=== PATIENT | female | born 1955 | race Caucasian/White ===

== ENCOUNTER 2019-02-28 09:18 | Inpatient (IN) ==
--- NOTE | 2019-02-28 10:49 | History & Physical Bridge Note ---
Date of Service February 28, 2019 History & Physical Bridge Note I have examined the patient, reviewed the History & Physical and in the interval since the performance of the History & Physical I have noted the following changes of clinical significance: no changes noted
--- NOTE | 2019-02-28 10:50 | Pre Anesthesia Assessment ---
Date of Service February 28, 2019 Pre Sedation Assessment Vital Signs Temp Pulse Resp BP Pulse Ox 02/28/19 09:36 36.6 C 92 H 22 117/64 92 Cardiovascular RRR, no murmur, no edema + peripheral pulses normal Respiratory normal respiratory effort, lungs clear to auscultation Pre-Sedation Airway Assessment Smoking Status: Former smoker Hx Sleep Apnea: No Hx Difficult Intubation: No Short, Thick Neck: Yes Thyromental Distance: > or= 3.5 Finger Breadths Oral Cavity: + WNL Mallampati Class: III ASA: ASA3 Procedure Planning Contraindications for Sedation: none Current Medications Reviewed: Yes Notes The planned sedation has been discussed with the patient. Informed Consent was obtained. I have identified the patient, determined the appropriateness of sedation and have assessed the patient immediately prior to the procedure. All medicine(s) and interventions are by my order.
[2019-02-28] MEDS ORDERED: ALBUT/IPRATROP 3MG/0.5MG NEB 3 ML VIAL NEB STA (10:51)
[2019-02-28] MEDS ORDERED: SODIUM CHLORIDE 0.9% 1000ML 1,000 ML IV SCH (11:00)
[2019-02-28] MEDS ORDERED: LIDOCAINE 4% INH SOLN 4 ML BTL ONE ×2 (11:14)
[2019-02-28] MEDS ORDERED: OXYMETAZOLINE 0.05% 30 ML BTL ONE (11:14)
[2019-02-28] MEDS ORDERED: LIDOCAINE HCL VISCOUS SOLN 2% 15 ML UDC MT ONE (11:36)
[2019-02-28] MEDS ORDERED: MIDAZOLAM HCL 1 MG/ML 2ML VIAL IV STA (11:36)
[2019-02-28] MEDS ORDERED: LIDOCAINE HCL 2% (LOCAL) INJ 50 ML VIAL INFIL STA (11:36)
--- NOTE | 2019-02-28 12:07 | Post Operative Brief Note ---
Immediate Post Op Note v1 Date of Surgery February 28, 2019 Pre & Post Diagnosis Operation Date: 02/28/19 10:00 Pre-Op Diagnosis: Left Lung Atelectasis Post-Op Diagnosis: Left Lung Atelectasis/mucoid impaction Procedure Operation Date: 02/28/19 10:00 Actual Procedures p Bronchoscopy Radiology(Bilateral) - James Link MD Surgeon James Link MD Inspector And Tester none Estimated Blood Loss 0 Findings Consistent with Post-Op Diagnosis LLL collapse sec mucoid impaction Complications none Disposition Accompanied Patient To Recovery: No Overlapping Procedure I was present for: the critical portions of procedure. I was immediately available: during the entire case. Back up surgeon: was not required during procedure.
--- NOTE | 2019-02-28 12:08 | Post Anesthesia Assessment ---
Date of Service February 28, 2019 Post Sedation Assessment Vital Signs Temp Pulse Pulse Resp BP Pulse Ox 02/28/19 12:01 88 22 97/51 L 94 02/28/19 11:54 36.9 C 85 20 113/67 93 02/28/19 11:40 95 H 24 115/77 93 02/28/19 11:35 96 H 22 127/63 93 02/28/19 11:30 96 H 22 112/64 96 02/28/19 11:25 100 H 26 H 138/81 94 02/28/19 11:20 96 H 18 107/71 94 02/28/19 11:15 95 H 22 115/58 L 96 02/28/19 11:10 92 H 18 120/65 97 02/28/19 09:36 36.6 C 92 H 22 117/64 92 Recovery Score Activity: Moves 4 extremities Respiration: Deep Breath/Cough Circulation: +/-20% PreAnes Value Consciousness: Fully Awake Oxygen Saturation: O2 needed for >90% Post Anesthesia Score: 9 Discharge Sedation Level of Care: Higher Level of Care Post Sedation Plan On clinical assessment, the patient appears to have tolerated the sedation without complications. Patient is recovering as anticipated. Patient will continue to be monitored by nursing and may be discharged when sedation discharge criteria are met per below protocol. Upon Completions of procedure and additional 15 minutes continue every 5 minute vital signs and the P.A.R. score; then discharge to a Phase I or Fast Track to Phase II per the following guidelines: * Discharge Patient to appropriate Phase II area if PAR is 8 or greater or return to pre- procedure baseline. The post - procedure orders will be as directed. * If PAR score is less than 8 or not return to pre-procedure baseline then patient will follow Phase I monitoring till PAR is reached for Phase II. The Phase I may be done in procedure room or may call to secure a Phase I area. * If naloxone or flumazenil are used for reversal, hold in Phase I for continued monitoring from when last reversal dose was given for a minimum of 60 minutes or longer pending the nurse and/or physician discretion of patient condition before discharge to Phase II. Please call the Sedation Physician to re-evaluate and complete post-note for discharge to Phase II area. Do NOT discharge from procedure sedation or Phase 1 until post- sedation evaluation note is complete by procedure /sedation MD Sedation Discharge Instructions to be given to the patient at discharge to home.
[2019-02-28] MEDS ORDERED: ALBUT/IPRATROP 3MG/0.5MG NEB 3 ML VIAL INH PRN (12:48)
[2019-02-28] MEDS ORDERED: CARBOHYDRATES FOR HYPOGLYCEMIA PO PRN (12:51)
[2019-02-28] MEDS ORDERED: GLUCOSE 40% GEL 15 GM TUBE PO PRN (12:51)
[2019-02-28] MEDS ORDERED: GLUCAGON FOR INJ 1 MG VIAL SQ PRN (12:51)
[2019-02-28] MEDS ORDERED: GLUCOSE 10 TABS/TUBE PO PRN (12:51)
[2019-02-28] MEDS ORDERED: ACETAMINOPHEN 325 MG TAB PO PRN (12:51)
[2019-02-28] MEDS ORDERED: ONDANSETRON INJ 2 MG/ML 2 ML VIAL IV PRN (12:51)
[2019-02-28] MEDS ORDERED: DEXTROSE 50% 50 ML SYRINGE IV PRN (12:51)
[2019-02-28] MEDS ORDERED: ALUMINUM/MAGNESIUM SUSP 30 ML UDC PO PRN (12:51)
--- NOTE | 2019-02-28 12:52 | Operative Report ---
DATE OF OPERATION: 02/28/2019 PROCEDURE: Fiberoptic bronchoscopy with and without transbronchial biopsy. ANESTHESIA PREOPERATIVELY: None. ANESTHESIA DURING PROCEDURE: 2 mg IV Versed, 20 mL 2% Xylocaine spray above and below the cords, 4% viscous Xylocaine intranasally. DESCRIPTION OF PROCEDURE: Fiberoptic bronchoscope was inserted into the right naris with minimal difficulty and passed to the level of the true vocal cords. Cords appear to approximate normally with phonation without evidence of lesions or paralysis and the area was anesthetized with 2% Xylocaine spray. The scope was introduced into the trachea and right and left tracheobronchial tree. The brad was sharp. The right main stem bronchus with the right upper lobe, the apical posterior and anterior segments, bronchus intermedius, right middle lobe, medial lateral segments and all basilar segments, right lower lobe were free of endobronchial lesions with a small amount of mucopurulent secretion lavaged from right lower lobe until clear. Left tracheobronchial tree was then explored and the left lower lobe bronchial orifice was totally occluded with thick mucoviscous and mucopurulent secretion that was impacted. I copiously lavaged this area with normosol and the aspirate was sent for appropriate studies. The left upper lobe and lingual subdivision were not obstructed and a small amount of mucopurulent secretion was lavaged from each lobar segment as well. Left lower lobe was reintroduced with the scope and I could visualize the basilar segments without obvious endobronchial lesions, but each segmental bronchial orifice as well as a left lower lobe bronchial orifice itself was extremely edematous and friable. No additional specimens were obtained as the patient became quite tachypneic and tachycardic as well as hypoxemic. The procedure was terminated. She was given an additional nebulizer treatment with Xopenex 1.25 mg and 40 mg of IV Solu-Medrol and transferred back to A[facility], hemodynamically stable, in mild respiratory distress. A decision was made to admit her to the hospital because of persistent left lower lobe collapse/atelectasis secondary to mucoid impaction and treat for vigorous pulmonary toilet that would include aerosolized bronchodilator, IV Solu-Medrol with careful attention to glucose monitoring, broad-spectrum antibiotics, pending culture results and the use of a flutter valve. It may be necessary to use of Mucomyst or acetylcysteine with her treatments as well to eventuate pulmonary toilet. We may consider repeat bronchoscopy tomorrow if the patient continues to show left lower lobe atelectasis. I attest to the content of the Intraoperative Record and any orders documented therein. Any exception s are noted below.
--- NOTE | 2019-02-28 12:55 | Consultation Report ---
DATE OF CONSULTATION: 02/28/2019 ADDENDUM PHYSICAL EXAMINATION: GENERAL: Well-developed, well-nourished, moderately obese white female, appearing mildly dyspneic at rest. CURRENT VITAL SIGNS: Pulse 96 and irregular, respiratory rate 26, blood pressure 140/90, O2 sat 92% on 2 liters. She is afebrile. SKIN: Without lesion. HEENT: Atraumatic, normocephalic. PERRLA. LUNGS: Coarse rhonchi in the left base with improved aeration. CARDIAC: Irregular rate and rhythm. I do not appreciate a gallop. ABDOMEN: Soft, protuberant. EXTREMITIES: Trace pedal edema. No clubbing. Peripheral cyanosis. NEUROLOGIC: Intact. No lateralizing signs. OVERALL ASSESSMENT: A 63-year-old with severe chronic obstructive pulmonary disease, longstanding smoking history with left lower lobe atelectasis secondary to mucoid impaction. Cannot 100% rule out an endobronchial neoplasm, but we will admit for vigorous pulmonary toilet that should include aerosolized bronchodilator, IV Solu-Medrol, broad spectrum antibiotics, O2 therapy, and pulmonary toilet that would include a flutter valve, possibility a vibration vest, and we will add acetylcysteine and Mucomyst 20% 3 mL to her nebulizer treatments b.i.d. to see if this also helps with mucociliary clearance.
--- NOTE | 2019-02-28 13:00 | History & Physical Report ---
Date of Service February 28, 2019 02/28/19 Bronchoscopy Radiology, Surgeon: James Link Side: Bilateral Assessment & Plan (1) Acute and chronic respiratory failure: this pt was brought in for a elective bronchoscopy, was found to have LLL collapse with mucoid impaction with removal but developed acute respiratory failure from copd exacerbation post procedure. will be on telemetry for close oxymetry, steroids iv and duonebs, arformoterol and 3 doses of pulmozyme. No antibiotics at this point. pulmonary consult, will check cxr in am (2) Diabetes 1.5, managed as type 2: Patient be maintained on Lantus with sliding scale insulin and should be a diabetic diet n.p.o. after midnight for possible repeat bronchoscopy in the morning (3) Hypertension: Patient has her hypertension treated with carvedilol and Lasix these are continued (4) Hypothyroidism: She remains clinically euthyroid Synthroid 125 will be continued TSH rechecked in the morning (5) CHF (congestive heart failure): Patient has congestive heart failure listed on her problem list. She does have some lower extremity swelling and presentation this could be from cor pulmonale. Additionally she is on medications that would suggest heart failure such as carvedilol. She also has amiodarone which could be from atrial fibrillation which could create diastolic failure. We will need to obtain records from [facility] (6) DVT prophylaxis: Patient typically takes Xarelto. This is held for procedure. We will continue to hold this in case she is a repeat bronchoscopy in the morning and apply teds and SCDs at this time History of Present Illness Primary Care Provider: Dima Perez Capp, 63-year-old female brought for an elective bronchoscopy with Dr. Link for abnormal chest x-ray and increased shortness of breath. Reportedly she has fairly significant lung disease with an FEV1 of 700. He did find her to have left lower lobe collapse with mucoid impaction which was removed but subsequent to the procedure she developed a acceleration of her shortness of breath and having acute on chronic respiratory failure from COPD. The patient has chronic tobacco use as her history as well as some cardiovascular problems taking amiodarone and Xarelto although she does not recite to me that she is a history of atrial fibrillation when I asked with her and her daughter. In the ambulatory surgical unit she is laying on her right side she was talking in short sentences she has some pursed lip breathing he is on supplemental oxygen upon exam was abnormal she is agreeable to present to the hospital for further care by Dr. Link we did confirm she is a CPR code only in front of her daughter. She will be brought in for intravenous steroids inhaled bronchodilators give a short trial of Pulmozyme to see if I can move any of her mucus secretions as well as some Mucinex Allergies Allergy/AdvReac Type Severity Reaction Status Date / Time varenicline [From Chantix] Allergy Rash Verified 02/28/19 09:50 Home Medications Home Medications Medication Instructions Recorded Confirmed Type Calcium 500 + D 1 tab PO DAILY 02/28/19 02/28/19 History Daliresp 500 mcg PO DAILY 02/28/19 02/28/19 History Spiriva with HandiHaler 18 mcg INHALATION DAILY 02/28/19 02/28/19 History Tylenol Extra Strength 2 tab PO Q4 PRN 02/28/19 02/28/19 History Vancocin 250 mg PO DAILY 02/28/19 02/28/19 History Wellbutrin SR 150 mg PO BID 02/28/19 02/28/19 History Xarelto 20 mg PO DAILY 02/28/19 02/28/19 History albuterol sulfate [ProAir HFA] 1 puff INHALATION Q4 PRN 02/28/19 02/28/19 History amiodarone 200 mg PO DAILY 02/28/19 02/28/19 History carvedilol 1 tab PO DAILY 02/28/19 02/28/19 History clobetasol 1 applic TOPICAL DAILY 02/28/19 02/28/19 History clopidogrel 75 mg PO DAILY 02/28/19 02/28/19 History diclofenac sodium 1 tab PO DAILY 02/28/19 02/28/19 History fluticasone propionate [Flonase 1 spray INTRANASAL DAILY 02/28/19 02/28/19 History Allergy Relief] ljljmvxfmiu-tlflrxcjf-nkftmnxc 1 inh INHALATION DAILY 02/28/19 02/28/19 History [Trelegy Ellipta] furosemide [Lasix] 40 mg PO DAILY 02/28/19 02/28/19 History gabapentin 1 cap PO TID 02/28/19 02/28/19 History guaifenesin [Mucinex] 180 mg PO DAILY 02/28/19 02/28/19 History hydrocortisone [Anusol-HC] 1 applic [place] BID PRN 02/28/19 02/28/19 History insulin aspart U-100 [Novolog 15 unit SUBCUT DAILY 02/28/19 02/28/19 History Flexpen U-100 Insulin] insulin glargine [Lantus U-100 10 unit SUBCUT HS 02/28/19 02/28/19 History Insulin] ipratropium-albuterol 3 ml INHALATION Q6 PRN 02/28/19 02/28/19 History levothyroxine 1 tab PO DAILY 02/28/19 02/28/19 History magnesium 250 mg PO DAILY 02/28/19 02/28/19 History multivitamin 1 tab PO DAILY 02/28/19 02/28/19 History pantoprazole 40 mg PO DAILY 02/28/19 02/28/19 History potassium chloride 10 meq PO DAILY 02/28/19 02/28/19 History simvastatin 20 mg PO DAILY 02/28/19 02/28/19 History triamcinolone acetonide 1 applic TOPICAL DAILY PRN 02/28/19 02/28/19 History Past Med/Surg History Medical History CHF (congestive heart failure) (Acute) COPD (chronic obstructive pulmonary disease) (Acute) Chronic sinusitis (Acute) Coronary stent patent (Acute) Diabetes 1.5, managed as type 2 (Acute) Dyspnea (Acute) Eczema (Acute) H/O: hysterectomy (Acute) Hypertension (Acute) Hypothyroidism (Acute) Psoriasis (Acute) Surgical History H/O angioplasty (Acute) History of cholecystectomy (Acute) Family History Mother Diabetes Social History Beliefs That Will Affect Care: None Current Living Situation: Alone Other Information That Helps Us Care for You: No Feels Safe at Home: Yes Safety Concerns: Feels Safe At This Time Smoking Status: Former smoker Tobacco Type: cigarettes Smoking End Date: 2 weeks ago Hx Alcohol Use: No Hx Substance Use: No Review of Systems Review of Systems: ROS: well nourished well developed. No double vision blurry vision No problems with speech or swallowing No palpitations, chest pain or pressure lower extremity swelling Severe dyspnea shortness of breath pursed lip breathing No abdominal pain nausea vomiting diarrhea changes in appetite or weight No burning urine urine frequency or changes in color No focal joint pain or muscle pain No skin rashes or oral lesions No unusual bruising or bleeding No focused back pain or numbness or loss of strength No changes in memory or confusion Physical Exam Physical Exam: The patient appeared older than her stated age in mild to moderate distress Vital signs as documented. Head exam is unremarkable. normocephalic, atraumatic Neck is with mild jugular venous distension, thyromegaly, or lymphademopathy Lungs are coarse bilaterally right greater than left wheezes on the right. Cardiac exam reveals Rhythm is regular. First and second heart sounds normal. Abdominal exam reveals normal bowel sounds, slightly distended and tympanitic nontender no masses, no organomegaly Extremities are mildly edematous and both pedal pulses are present Neurologic exam is A&Ox3, no focal deficits, strength is equal bilateral Psychologically seems neither anxious or depressed Skin is warm Dry without bruises or lesions Results & Data Vital Signs (Past 12 Hours) Vital Signs Temp Pulse Pulse Resp BP Pulse Ox 02/28/19 12:44 90 20 122/63 91 02/28/19 12:13 37.3 C 88 22 93/68 L 94 02/28/19 12:01 88 22 97/51 L 94 02/28/19 11:54 36.9 C 85 20 113/67 93 02/28/19 11:40 95 H 24 115/77 93 02/28/19 11:35 96 H 22 127/63 93 02/28/19 11:30 96 H 22 112/64 96 02/28/19 11:25 100 H 26 H 138/81 94 02/28/19 11:20 96 H 18 107/71 94 02/28/19 11:15 95 H 22 115/58 L 96 02/28/19 11:10 92 H 18 120/65 97 02/28/19 09:36 36.6 C 92 H 22 117/64 92
--- NOTE | 2019-02-28 13:21 | Consultation Report ---
DATE OF CONSULTATION: 02/28/2019 REASON FOR CONSULTATION: Left lower lobe collapse/COPD exacerbation. HISTORY OF PRESENT ILLNESS: A 63-year-old white female initially seen by our midlevel, JOVITA Pires with [facility] on 01/22/2019. This was a new patient visit. The patient has been under the care of Dr. Quinn in the [facility] for primary care and Dr. Goddard with the [facility] for several years and diagnosed with severe COPD. The patient has had a longstanding smoking history and had transferred her care to our office in [place] at [facility] for convenience. She has been chronically congested and made worse with changes in weather. She had been on Advair and Spiriva and Daliresp. She was using a nebulizer frequently. Last chest x-ray apparently was 9 months ago and she had been hospitalized at that time with a COPD exacerbation. She is bringing up at times thick mucus although has had great difficulty doing so without hemoptysis or pleuritic pain. She has been wheezing and particularly symptomatic over the past several weeks to months. Her father smoked during her childhood and she has smoked one-half to a pack of cigarettes a day for 45 years and is planning on quitting smoking. She had a history of atrial fibrillation and ischemic cardiac disease having undergone stenting x2 and has had a pacemaker and defibrillator placed. She follows with Dr. Bowen/cardiology in [place] and has been on amiodarone for chronic atrial fibrillation there. CT scan of the chest done within the past month showed left lower lobe collapse with no discernible mass or adenopathy and she underwent bronchoscopic evaluation utilizing moderate conscious sedation earlier today. We had to do the procedure with her sitting at 60 degrees in the [facility] and she was too dyspneic to undergo the procedure reclining. We used light anesthesia and what was clear was the left lower lobe was totally occluded with thick mucoviscous and mucoid impaction and we were able to lavage this area copiously and send the aspirate for studies. I did not see an obvious neoplastic process, but the left lower lobe bronchus and its segmental bronchi were edematous and friable. The patient did not tolerate the procedure well and the procedure was terminated. No biopsies or additional specimens were obtained. The patient was given 40 mg of IV Solu-Medrol and an additional nebulizer treatment with Xopenex 1.25 mg (patient had been given a preprocedure nebulizer treatment with DuoNeb solution) and a decision was made to admit the patient for a more aggressive pulmonary toilet and possible repeat bronchoscopy in the morning if chest x-ray continues to show left lower lobe atelectasis. She denies any aspiration or postprandial cough. Has a history of hypothyroidism, GERD and coronary disease as well as chronic atrial fibrillation. She stopped her Xarelto, which she has been on for her atrial fibrillation on Monday and is no longer on Plavix. FAMILY HISTORY: Includes asthma, COPD. The rest of review of systems is noncontributory. PAST MEDICAL HISTORY: Pertinent for hypertension, hypothyroidism, psoriasis, type 2 diabetes mellitus, chronic atrial fibrillation, ischemic cardiac disease as well as pacemaker ICD implantation. The patient was seen back in the clinic by Joao Farley on 02/18/2019. I told that her CT scan showed complete collapse of left lower lobe and was scheduled for surgery. Her Advair and Spiriva have been stopped and she was placed on Trelegy Ellipta 100/62.5/25 mcg 1 inhalation daily. I spoke with Dr. Peterson who agreed to admit the patient onto the hospitalists. She is not in any hospitalist service for aggressive pulmonary toilet. We will make patient n.p.o. this evening and consider repeat bronchoscopy in the morning if the chest x-ray shows no improvement.
[2019-02-28] MEDS: GABAPENTIN 300 MG CAP PO SCH ×2 (15:47→21:25)
[2019-02-28] MEDS: DORNASE ALFA 2.5 ML AMP INH SCH ×2 (16:09→18:56)
[2019-02-28] MEDS ORDERED: INSULIN ASPART 100 UNITS/ML 3 ML PEN SC SCH (16:30)
[2019-02-28] MEDS ORDERED: INSULIN ASPART 100 UNITS/ML 3 ML PEN SC ONE (16:45)
[2019-02-28] MEDS ORDERED: INSULIN GLARGINE SOLOSTAR 100 UNITS/ML 3 ML PEN SC STA (18:50)
[2019-02-28] MEDS: ARFORMOTEROL TART 15MCG/2ML VIAL INH SCH (18:55)
[2019-02-28] MEDS ORDERED: SODIUM CHLOR 7% 4 ML NEB INH SCH (20:00)
[2019-02-28] MEDS ORDERED: ALBUT/IPRATROP 3MG/0.5MG NEB 3 ML VIAL NEB SCH (20:00)
[2019-02-28] MEDS ORDERED: PHARMACY GLYCEMIC MGMT CONSULT PRN (20:39)
[2019-02-28] MEDS ORDERED: ACETYLCYSTEINE 20% INHAL SOLN ***DISPENSED BY RESP. INH SCH (21:00)
[2019-02-28] MEDS ORDERED: INSULIN GLARGINE SOLOSTAR 100 UNITS/ML 3 ML PEN SQ SCH ×2 (21:00)
[2019-02-28] MEDS ORDERED: INSULIN GLARGINE SOLOSTAR 100 UNITS/ML 3 ML PEN SC SCH (21:00)
[2019-02-28] MEDS: INSULIN ASPART 100 UNITS/ML 3 ML PEN SC SCH ×2 (21:21→23:57)
[2019-02-28] MEDS: methylPREDNISolone 40 MG in SYRINGE 0 ML IV SCH (21:25)
[2019-02-28] MEDS: guaiFENesin 600 MG TABCR PO SCH (21:26)
[2019-02-28] MEDS: BuPROPion SR 150 MG TABCR PO SCH (21:27)
[2019-02-28] MEDS: DOXYCYCLINE HYCLATE 100 MG in DEXTROSE 5% 100 ML IV SCH (21:31)
[2019-02-28] MEDS: ALBUT/IPRATROP 3MG/0.5MG NEB 3 ML VIAL NEB PRN (23:49)
[2019-03-01] MEDS: INSULIN ASPART 100 UNITS/ML 3 ML PEN SC SCH ×7 (04:17→23:59)
[2019-03-01] MEDS: LEVOTHYROXINE SODIUM 125 MCG TABLET PO SCH (04:19)
[2019-03-01 06:37] LABS: Estimated Average Glucose 186 mg/dl; Hemoglobin A1C 8.1 % (4.5-5.6)
[2019-03-01 06:53] LABS: BUN Creatinine Ratio 14.6 (10-20); Calcium 9.1 mg/dl (8.5-10.1); Creatinine Clr Calc Pharmacy 62.7 ml/min; Est GFR (African American) 64.7; Est GFR (Non-African American) 55.8; Potassium 4.4 mmol/L (3.5-5.1)
[2019-03-01] MEDS: ARFORMOTEROL TART 15MCG/2ML VIAL INH SCH ×2 (07:17→19:45)
[2019-03-01] MEDS: ALBUT/IPRATROP 3MG/0.5MG NEB 3 ML VIAL NEB PRN ×3 (07:39→19:46)
--- NOTE | 2019-03-01 07:59 | History & Physical Bridge Note ---
Date of Service March 01, 2019 History & Physical Bridge Note I have examined the patient, reviewed the History & Physical and in the interval since the performance of the History & Physical I have noted the following changes of clinical significance: no changes noted
--- NOTE | 2019-03-01 08:00 | Pre Anesthesia Assessment ---
Date of Service March 01, 2019 Pre Sedation Assessment Vital Signs Temp Pulse Pulse Resp BP BP Pulse Ox 03/01/19 07:44 36.7 C 79 22 120/63 97 03/01/19 07:39 87 20 97 03/01/19 06:59 85 20 97 03/01/19 04:00 36.5 C 86 22 129/80 93 03/01/19 01:54 85 02/28/19 23:49 81 22 95 02/28/19 23:04 36.5 C 84 20 129/70 92 02/28/19 18:57 82 18 95 02/28/19 15:05 37.1 C 94 H 18 145/74 H 93 02/28/19 13:30 36.9 C 89 22 145/74 H 90 02/28/19 13:15 37.2 C 89 22 123/64 94 02/28/19 12:44 90 20 122/63 91 02/28/19 12:13 37.3 C 88 22 93/68 L 94 02/28/19 12:01 88 22 97/51 L 94 02/28/19 11:54 36.9 C 85 20 113/67 93 02/28/19 11:40 95 H 24 115/77 93 02/28/19 11:35 96 H 22 127/63 93 02/28/19 11:30 96 H 22 112/64 96 02/28/19 11:25 100 H 26 H 138/81 94 02/28/19 11:20 96 H 18 107/71 94 02/28/19 11:15 95 H 22 115/58 L 96 02/28/19 11:10 92 H 18 120/65 97 02/28/19 09:36 36.6 C 92 H 22 117/64 92 Cardiovascular RRR, no murmur, no edema + peripheral pulses normal Respiratory + audible wheezes Pre-Sedation Airway Assessment Smoking Status: Former smoker Hx Sleep Apnea: No Hx Difficult Intubation: No Short, Thick Neck: Yes Thyromental Distance: > or= 3.5 Finger Breadths Oral Cavity: + WNL Mallampati Class: III ASA: ASA3 NPO Status Date of Last Intake of Fluids: 02/27/19 Time of Last Intake of Fluids: 23:00 Date of Last Intake of Solid Food: 02/27/19 Time of Last Intake of Solid Foods: 23:00 Notes The planned sedation has been discussed with the patient. Informed Consent was obtained. I have identified the patient, determined the appropriateness of sedation and have assessed the patient immediately prior to the procedure. All medicine(s) and interventions are by my order.
--- NOTE | 2019-03-01 08:20 | XRay Report ---
XR chest 2V routine CLINICAL HISTORY: eval pnx dyspnea COMPARISON STUDY: None FINDINGS: Moderate cardiomegaly. Left lower lobe atelectasis. Interstitial prominence throughout both basilar regions. There is a permanent bipolar cardiac pacemaker/defibrillator. IMPRESSION: 1. Left lower lobe atelectasis. 2. Interstitial prominence both lung bases possibly inflammatory. The above report was generated using voice recognition software. It may contain grammatical, syntax or spelling errors. Electronically signed by: Lokesh Pyle M.D. 03/01/2019 8:18 AM
[2019-03-01] MEDS: DOXYCYCLINE HYCLATE 100 MG in DEXTROSE 5% 100 ML IV SCH ×2 (08:27→21:37)
[2019-03-01] MEDS: methylPREDNISolone 40 MG in SYRINGE 0 ML IV SCH ×2 (08:27→20:40)
[2019-03-01] MEDS: SODIUM CHLORIDE 0.9% 1000ML 1,000 ML IV SCH (08:27)
[2019-03-01] MEDS: cefTRIAXone SODIUM 2,000 MG in DEXTROSE 5% 50 ML IV SCH (08:27)
[2019-03-01] MEDS: FLUTICASONE PROPIONATE NA SPR 16 GM BTL SCH (08:28)
--- NOTE | 2019-03-01 08:45 | Pharmacy Report ---
Glycemic Control Consultation - Date of Service March 01, 2019 - Scope Scope: Glycemic Pharmacist consulted by Dr Brown on 02-28-19 for glycemic control and to write orders per [facility] inpatient glycemic control protocol - Objective Weight: 107.5 kg Accuchecks BSG (last 24hrs): 02/28/19 02/28/19 02/28/19 09:34 16:17 16:18 Glucose POC Glucose 160 H 301 H* 293 H 02/28/19 02/28/19 02/28/19 18:36 18:38 18:40 Glucose POC Glucose 302 H* 287 H 299 H 02/28/19 02/28/19 02/28/19 20:17 20:21 23:53 Glucose POC Glucose 330 H* 331 H* 288 H 03/01/19 03/01/19 03/01/19 04:15 05:50 07:59 Glucose 244 H POC Glucose 240 H 229 H Laboratory Data (last 24hrs): 03/01/19 05:50 Potassium 4.4 Carbon Dioxide 35 H Anion Gap 3.0 Creatinine 1.06 Est Cr Clr Drug Dosing 62.7 HbA1c: Hemoglobin A1c 8.1 % (4.5-5.6) H 03/01/19 05:50 - Recent Pertinent Medications Outpatient Anti-diabetic Regimen: * Lantus 20 units BID - reports noncompliance with this dosing, Novolog per SSI (typically ~6 units TIDM) * A1c = 8.1 % [03-01-19] Risk Factors for Insulin Resistance: * Steroids: methylprednisolone 40 iv bid * Infection: rocephin/doxy - Assessment & Plan Assessment & Plan: ASSESSMENT: * Patient is 63 year old female admitted with increased shortness of breath, concern for infection placed on antibiotics/steroids. Patient reports home dosing of Lantus is 20 units BID, however does state that she does not take every day BID, some days only take once daily * Asked patient who she follows up with outpatient for her diabetes management, but she could not provide me with a name. Stated that its changed around a lot. Told her it is important to have a provider who follows her diabetes management so they can determine dosage adjustments. She states that she adjusts herself because she seems to be on steroids a lot and her insulin needs change around so frequently * PMH significant for asthma, COPD, hypothyroidism - A1C on admission 8.1 % * Patient started on solumedrol last evening - patient reports not taking any Lantus 5/2 AM. BSGs trended up to 300s last evening. * Received total of 57 units of insulin yesterday, of which 28 units were basal insulin * Fasting BSG this 229 mg/dL - trending down since admission, will split basal insulin to BID dosing * Patient NPO this am for bronchoscopy - diet not yet resume ; will add CR to cover when diet started PLAN FOR INPATIENT GLYCEMIC CONTROL: * Basal insulin * Lantus 15 units this am * Lantus per scale HS -For BSG < 140 - give 10 units -For BSG 140 - 180 - give 15 units -For BSG > 180 - give 20 units * Bolus insulin * NovoLog per scale ACHS or Q6hrs while NPO * Goal Range: Low 110 mg/dL - High 140 mg/dL * Correction Factor: 15 mg/dL/unit * Nutritional / Prandial insulin per carb ratio of 1 unit per 7 grams CHO consumed * Please note that the plan above was derived based on current level of insulin resistance and hospital stress. These recommendations are appropriate for inpatient admission only. Plan of care upon discharge will need to be reassessed to avoid potential outpatient hypo/hyperglycemia. Thank you.
[2019-03-01] MEDS ORDERED: INSULIN GLARGINE SOLOSTAR 100 UNITS/ML 3 ML PEN SC SCH ×2 (09:00)
[2019-03-01] MEDS ORDERED: AZITHROMYCIN 500 MG in DEXTROSE 5% 250 ML IV SCH (09:00)
[2019-03-01] MEDS ORDERED: MIDAZOLAM HCL 1 MG/ML 2ML VIAL IV STA (10:29)
[2019-03-01] MEDS ORDERED: LIDOCAINE HCL 2% (LOCAL) INJ 50 ML VIAL INFIL STA (10:29)
[2019-03-01] MEDS ORDERED: LIDOCAINE HCL VISCOUS SOLN 2% 15 ML UDC MT ONE (10:29)
[2019-03-01] MEDS ORDERED: LIDOCAINE 4% INH SOLN 4 ML BTL INFIL STA (10:29)
[2019-03-01] MEDS ORDERED: LEVALBUTEROL HCL 1.25 MG/3 ML NEB NEB STA (10:29)
[2019-03-01] MEDS ORDERED: OXYMETAZOLINE 0.05% 30 ML BTL ONE (10:29)
--- NOTE | 2019-03-01 10:54 | Post Anesthesia Assessment ---
Date of Service March 01, 2019 Post Sedation Assessment Vital Signs Temp Pulse Pulse Resp BP BP Pulse Ox 03/01/19 10:47 36.9 C 90 24 150/84 H 89 L 03/01/19 10:40 97 H 20 178/89 H 93 03/01/19 10:35 97 H 22 162/87 H 93 03/01/19 10:30 97 H 22 172/92 H 93 03/01/19 10:25 95 H 22 173/91 H 94 03/01/19 10:20 87 16 164/94 H 94 03/01/19 10:15 87 22 155/95 H 95 03/01/19 10:10 85 20 151/98 H 97 03/01/19 10:02 90 20 152/74 H 97 03/01/19 09:40 76 18 93 03/01/19 07:44 36.7 C 79 22 120/63 97 03/01/19 07:39 87 20 97 03/01/19 06:59 85 20 97 03/01/19 04:00 36.5 C 86 22 129/80 93 03/01/19 01:54 85 02/28/19 23:49 81 22 95 02/28/19 23:04 36.5 C 84 20 129/70 92 02/28/19 18:57 82 18 95 02/28/19 15:05 37.1 C 94 H 18 145/74 H 93 02/28/19 13:30 36.9 C 89 22 145/74 H 90 02/28/19 13:15 37.2 C 89 22 123/64 94 02/28/19 12:44 90 20 122/63 91 02/28/19 12:13 37.3 C 88 22 93/68 L 94 02/28/19 12:01 88 22 97/51 L 94 02/28/19 11:54 36.9 C 85 20 113/67 93 02/28/19 11:40 95 H 24 115/77 93 02/28/19 11:35 96 H 22 127/63 93 02/28/19 11:30 96 H 22 112/64 96 02/28/19 11:25 100 H 26 H 138/81 94 02/28/19 11:20 96 H 18 107/71 94 02/28/19 11:15 95 H 22 115/58 L 96 02/28/19 11:10 92 H 18 120/65 97 Recovery Score Activity: Moves 4 extremities Respiration: Deep Breath/Cough Circulation: +/-20% PreAnes Value Consciousness: Arouseable (by name) Oxygen Saturation: O2 needed for >90% Post Anesthesia Score: 8 Discharge Sedation Level of Care: Higher Level of Care Post Sedation Plan On clinical assessment, the patient appears to have tolerated the sedation without complications. Patient is recovering as anticipated. Patient will continue to be monitored by nursing and may be discharged when sedation discharge criteria are met per below protocol. Upon Completions of procedure and additional 15 minutes continue every 5 minute vital signs and the P.A.R. score; then discharge to a Phase I or Fast Track to Phase II per the following guidelines: * Discharge Patient to appropriate Phase II area if PAR is 8 or greater or return to pre- procedure baseline. The post - procedure orders will be as directed. * If PAR score is less than 8 or not return to pre-procedure baseline then patient will follow Phase I monitoring till PAR is reached for Phase II. The Phase I may be done in procedure room or may call to secure a Phase I area. * If naloxone or flumazenil are used for reversal, hold in Phase I for continued monitoring from when last reversal dose was given for a minimum of 60 minutes or longer pending the nurse and/or physician discretion of patient condition before discharge to Phase II. Please call the Sedation Physician to re-evaluate and complete post-note for discharge to Phase II area. Do NOT discharge from procedure sedation or Phase 1 until post- sedation evaluation note is complete by procedure /sedation MD Sedation Discharge Instructions to be given to the patient at discharge to home.
--- NOTE | 2019-03-01 10:55 | Post Operative Brief Note ---
Immediate Post Op Note v1 Date of Surgery March 01, 2019 Pre & Post Diagnosis Operation Date: 02/28/19 10:00 Pre-Op Diagnosis: Left Lung Atelectasis Post-Op Diagnosis: Left Lung Atelectasis/Severe Tracheobronchitis Operation Date: 03/01/19 10:30 Pre-Op Diagnosis: COPD Post-Op Diagnosis: COPD Procedure Operation Date: 02/28/19 10:00 Actual Procedures p Bronchoscopy Radiology(Bilateral) - James Link MD Operation Date: 03/01/19 10:30 Actual Procedures p Bronchoscopy Radiology(Bilateral) - James Link MD Surgeon James Link MD Rn Stars none Estimated Blood Loss 0 Findings Consistent with Post-Op Diagnosis Chronic Mucopurulent Bronchitis Complications none Disposition Accompanied Patient To Recovery: No Overlapping Procedure I was present for: the critical portions of procedure. I was immediately available: during the entire case. Back up surgeon: was not required during procedure.
[2019-03-01] MEDS ORDERED: Nursing to Pharmacy Communication ONE (11:19)
--- NOTE | 2019-03-01 11:50 | Progress Note ---
DATE: 03/01/2019 PULMONARY MEDICINE PROGRESS NOTE The patient examined, chart reviewed. SUBJECTIVE: The patient was seen this morning, although better from yesterday and having undergone bronchoscopic evaluation with BAL. She was still somewhat congested and this morning's chest x-ray continued to show left lower lobe collapse. She was then scheduled for bronchoscopy for this morning second time and hopefully to better tolerate the procedure and if need be to get biopsies at the same time to make sure she does not have an endobronchial neoplasm. PHYSICAL EXAMINATION: VITAL SIGNS: Blood pressure 150/84, pulse 90 and regular, respiratory rate 24, temperature 36.9, O2 sat 89-92% on 4 liters. SKIN: Warm and dry. HEENT: Atraumatic, normocephalic. PERRLA. LUNGS: Decreased breath sounds left base with scattered wheeze bilaterally, but better air entry in my opinion to both lung torres. CARDIAC: Regular rate and rhythm. I do not appreciate a gallop. ABDOMEN: Soft, protuberant. EXTREMITIES: Trace pedal edema. No clubbing. Peripheral cyanosis. NEUROLOGIC: Intact. No lateralizing signs. IMAGING DATA: A chest x-ray this morning as noted. LABORATORY DATA: Calculated CO2 is 35, BUN 15, creatinine 1.06. Glucose levels have been in the mid 200s, occasionally in the 300 range yesterday. Cultures from yesterday are still pending. OVERALL ASSESSMENT: A 63-year-old with severe chronic obstructive pulmonary disease, cor pulmonale and acute hypoxic on chronic respiratory failure, presents with worsening respiratory status and complete left lower lobe atelectasis. The patient will undergo a second bronchoscopy today and also no discernible endobronchial lesion was seen. The patient did have a left lower lobe bronchial orifice and multiple segmental bronchial orifices that were edematous and friable. I doubt a neoplasm is operative here, but will need to rule out. The patient became extremely fatigued with numerous neb treatments last night and I tried to simplify for this morning, but do believe she could tolerate more and will incrementally add additional treatment, i.e., the acetylcysteine b.i.d. and perhaps even the 7% hypertonic normal saline to see how well she tolerates that in addition to the neb treatments with Brovana b.i.d. We would keep her steroid going for a little while longer and would keep her through this weekend as I believe she needs to be mobilized. She is adamant that she will not go back to smoking cigarettes at home and that remains to be seen.
[2019-03-01 12:39] LABS: Hematocrit (blood only) 40.3 % (37-47); Hemoglobin 12.8 g/dL (12.0-16.0); Mean Corpuscular Volume 88.2 fL (80-100); Mean Platelet Volume 9.7 fL (7.4-10.4); Platelet Count 213 K/uL (130-400); RDW Coefficient of Variation 15.5 % (11.5-14.5); RDW Standard Deviation 49.2 fL (36.4-46.3); Red Blood Count 4.57 M/uL (4.2-5.4); White Blood Count 14.45 K/uL (4.8-10.8)
[2019-03-01 12:50] LABS: Mean Corpuscular Hgb Conc 31.8 g/dL (32-36)
[2019-03-01 12:58] LABS: Albumin Level 2.8 gm/dl (3.4-5.0); Bilirubin Direct 0.1 mg/dl (0-0.2); Bilirubin,Total 0.3 mg/dl (0.2-1); Total Protein 7.7 gm/dl (6.4-8.2)
[2019-03-01] MEDS: BuPROPion SR 150 MG TABCR PO SCH ×2 (13:02→20:40)
[2019-03-01] MEDS: CARVEDILOL 12.5 MG TAB PO SCH (13:02)
[2019-03-01] MEDS: MAGNESIUM OXIDE 400 MG TAB PO SCH (13:02)
[2019-03-01] MEDS: ROFLUMILAST 500 MCG TAB PO SCH (13:02)
[2019-03-01] MEDS: AMIODARONE 200 MG TAB PO SCH (13:02)
[2019-03-01] MEDS: POTASSIUM CHLORIDE 10 MEQ TABCR PO SCH (13:03)
[2019-03-01] MEDS: guaiFENesin 600 MG TABCR PO SCH ×2 (13:03→20:40)
[2019-03-01] MEDS: FUROSEMIDE 40 MG TAB PO SCH (13:03)
[2019-03-01] MEDS: PANTOprazole 40 MG TAB PO SCH (13:03)
[2019-03-01] MEDS: GABAPENTIN 300 MG CAP PO SCH ×3 (13:04→20:40)
--- NOTE | 2019-03-01 13:04 | Operative Report ---
DATE OF OPERATION: 03/01/2019 PROCEDURE: Fiberoptic bronchoscopy with bronchoalveolar lavage. INDICATIONS: Persistent left lower lobe atelectasis/collapse, rule out endobronchial obstruction. ANESTHESIA PREOPERATIVELY: None. ANESTHESIA DURING PROCEDURE: No IV fentanyl, IV Versed 4 mg, 20 mL 2% Xylocaine spray above and below the cords, 4% viscous Xylocaine intranasally. DESCRIPTION OF PROCEDURE: Moderate conscious sedation was utilized at 10:13 and completed at 10:25. Fiberoptic bronchoscope was inserted into the left naris with minimal difficulty and passed to the level of true vocal cords. The cords appeared to approximate normally with phonation without evidence for lesions or paralysis. The scope was then introduced into the right and left tracheobronchial tree. The trachea was within normal limits. Carissa was sharp. The right main stem bronchus was explored initially and mucopurulent, mucoviscous secretion was seen throughout the right tracheobronchial tree, virtually including several of the lobar segments including the right lower lobe and right middle lobe, the right upper lobe, the apical posterior and anterior segments were free of endobronchial lesions. Bronchus intermedius was free of endobronchial lesions. Right middle lobe was copiously lavaged with normosol and the aspirate sent for appropriate studies. The medial and lateral segments were patent. The right lower lobe in its respective basal segments were copiously lavaged as well and the aspirate sent for appropriate studies. Left tracheobronchial tree was explored and look better than yesterday. The left upper lobe, lingual subdivision were free of endobronchial lesions down to the subsegmental bronchi. Left lower lobe was no longer occluded, but there was still mucoviscous and thick mucopurulent secretion lavaged from each lobar segment to clear. The edema seems somewhat better at the left lower lobe orifice and I could not visualize a neoplastic process. Therefore, no brushings or biopsies were attempted, but just copious lavage was carried out. The procedure was then terminated. The patient was given a nebulizer treatment with Xopenex 1.25 mg, seemed to tolerate the procedure adequately and was transferred back to the medical floor, hemodynamically stable with no further signs of respiratory compromise. Will await microbiological and cytologic examination of the bronchial washings. I attest to the content of the Intraoperative Record and any orders documented therein. Any exception s are noted below.
[2019-03-01] MEDS: RIVAROXABAN 20 MG TAB PO SCH (15:10)
[2019-03-01] MEDS: CLOPIDOGREL BISULFATE 75 MG TAB PO SCH (15:10)
[2019-03-01] MEDS: ACETYLCYSTEINE 20% INHAL SOLN ***DISPENSED BY RESP. INH SCH (15:11)
--- NOTE | 2019-03-01 16:14 | Hospitalist Progress Note ---
Date of Service March 01, 2019 Assessment & Plan (1) Acute and chronic respiratory failure: Brought in for a elective bronchoscopy on 02/28 and was found to have LLL collapse with mucoid impaction. Mucus removed, but developed acute respiratory failure from COPD exacerbation post-procedure. Underwent a second bronchoscopy on 03/01 with further clearing of her RML, RLL, and LLL. - Feeling better on 03/01 - Continue ceftriaxone, doxy, methylprednisolone - Continue Brovana standing nebs, Mucomyst daily, roflumilast, and DuoNebs per pulmonology - Follow up bronch cultures & labs (2) Diabetes 1.5, managed as type 2: A1c of 8.1% on 03/01/2019. - Continue Lantus with sliding scale insulin - Diabetic diet (3) Hypertension: BP 140/75 to 180/80 in the last 24 hours. - Continue carvedilol and Lasix (4) Hypothyroidism: TSH is unknown. No signs/symptoms of hypo-/hyperthyroidism. - Continue home Synthroid 50 mcg (5) CHF (congestive heart failure): Unknown heart issues. - Continue home meds given short duration of stay (6) DVT prophylaxis: Xarelto Subjective Still some shortness of breath, but better than before her second bronch. Reports no fevers/chills, chest pain, abdominal pain, nausea, or vomiting. Review of Systems Review of Systems: All systems reviewed & are unremarkable except as noted in HPI & below Physical Exam Constitutional: well nourished and + acute distress ENMT: Mallampati Class: III Respiratory: normal respiratory effort, lungs clear to auscultation + audible wheezes Cardiovascular: RRR, no murmur, no edema Vessels: normal peripheral pulses Gastrointestinal (Abdomen): Inspection/Auscultation: abdomen normal to inspection Percussion/Palpation: abdomen soft; abdomen nontender Results & Data Vital Signs (Past 12 Hours) Vital Signs Temp Pulse Pulse Resp BP BP Pulse Ox 03/01/19 15:18 36.8 C 78 16 139/76 92 03/01/19 10:47 36.9 C 90 24 150/84 H 89 L 03/01/19 10:40 97 H 20 178/89 H 93 03/01/19 10:35 97 H 22 162/87 H 93 03/01/19 10:30 97 H 22 172/92 H 93 03/01/19 10:25 95 H 22 173/91 H 94 03/01/19 10:20 87 16 164/94 H 94 03/01/19 10:15 87 22 155/95 H 95 03/01/19 10:10 85 20 151/98 H 97 03/01/19 10:02 90 20 152/74 H 97 03/01/19 09:40 76 18 93 03/01/19 07:44 36.7 C 79 22 120/63 97 03/01/19 07:39 87 20 97 03/01/19 06:59 85 20 97
[2019-03-01] MEDS: SODIUM CHLOR 7% 4 ML NEB INH SCH (19:46)
[2019-03-01] MEDS: INSULIN GLARGINE SOLOSTAR 100 UNITS/ML 3 ML PEN SQ SCH (20:40)
[2019-03-02] MEDS: INSULIN ASPART 100 UNITS/ML 3 ML PEN SC SCH ×5 (04:19→21:11)
[2019-03-02] MEDS: LEVOTHYROXINE SODIUM 125 MCG TABLET PO SCH (04:23)
[2019-03-02] MEDS: ALBUT/IPRATROP 3MG/0.5MG NEB 3 ML VIAL NEB PRN (06:59)
[2019-03-02] MEDS: ACETYLCYSTEINE 20% INHAL SOLN ***DISPENSED BY RESP. INH SCH (06:59)
[2019-03-02 07:38] LABS: Hematocrit (blood only) 41.2 % (37-47); Hemoglobin 13.1 g/dL (12.0-16.0); Mean Corpuscular Hgb Conc 31.8 g/dL (32-36); Mean Corpuscular Volume 88.2 fL (80-100); Mean Platelet Volume 9.7 fL (7.4-10.4); Platelet Count 248 K/uL (130-400); RDW Coefficient of Variation 15.7 % (11.5-14.5); RDW Standard Deviation 50.3 fL (36.4-46.3); Red Blood Count 4.67 M/uL (4.2-5.4)
[2019-03-02] MEDS: SODIUM CHLORIDE 0.9% 1000ML 1,000 ML IV SCH (07:46)
[2019-03-02] MEDS: cefTRIAXone SODIUM 2,000 MG in DEXTROSE 5% 50 ML IV SCH (07:59)
[2019-03-02] MEDS: RIVAROXABAN 20 MG TAB PO SCH (08:00)
[2019-03-02] MEDS: POTASSIUM CHLORIDE 10 MEQ TABCR PO SCH (08:00)
[2019-03-02] MEDS: FUROSEMIDE 40 MG TAB PO SCH (08:00)
[2019-03-02] MEDS: DOXYCYCLINE HYCLATE 100 MG in DEXTROSE 5% 100 ML IV SCH (08:00)
[2019-03-02] MEDS: FLUTICASONE PROPIONATE NA SPR 16 GM BTL SCH (08:00)
[2019-03-02] MEDS: GABAPENTIN 300 MG CAP PO SCH ×3 (08:01→21:08)
[2019-03-02] MEDS: AMIODARONE 200 MG TAB PO SCH (08:01)
[2019-03-02] MEDS: PANTOprazole 40 MG TAB PO SCH (08:01)
[2019-03-02] MEDS: methylPREDNISolone 40 MG in SYRINGE 0 ML IV SCH (08:01)
[2019-03-02] MEDS: guaiFENesin 600 MG TABCR PO SCH ×2 (08:01→21:08)
[2019-03-02] MEDS: BuPROPion SR 150 MG TABCR PO SCH ×2 (08:01→21:08)
[2019-03-02] MEDS: MAGNESIUM OXIDE 400 MG TAB PO SCH (08:02)
[2019-03-02] MEDS: CLOPIDOGREL BISULFATE 75 MG TAB PO SCH (08:02)
[2019-03-02] MEDS: ROFLUMILAST 500 MCG TAB PO SCH (08:02)
[2019-03-02] MEDS: CARVEDILOL 12.5 MG TAB PO SCH (08:02)
[2019-03-02] MEDS: INSULIN GLARGINE SOLOSTAR 100 UNITS/ML 3 ML PEN SQ SCH ×2 (08:03→21:09)
[2019-03-02 08:08] LABS: BUN Creatinine Ratio 25.7 (10-20); Calcium 9.9 mg/dl (8.5-10.1); Est GFR (African American) 65.5; Est GFR (Non-African American) 56.5; Potassium 4.4 mmol/L (3.5-5.1)
[2019-03-02] MEDS: ARFORMOTEROL TART 15MCG/2ML VIAL INH SCH ×2 (08:51→19:47)
--- NOTE | 2019-03-02 09:48 | Pharmacy Report ---
Pharmacy Glycemic Short Note 2 - Date of Service March 02, 2019 - Glycemic Short BSG Results (Last 24 hours): 03/01/19 03/01/19 03/01/19 11:30 16:21 20:11 Glucose POC Glucose 197 H 308 H* 224 H 03/01/19 03/02/19 03/02/19 23:56 04:18 06:58 Glucose POC Glucose 195 H 230 H 186 H 03/02/19 07:27 Glucose 185 H POC Glucose OUTPATIENT ANTIDIABETIC REGIMEN: * Lantus 20 units SQ BID * NovoLog 6 units SQ TIDM {doesnt really bolus consistently} * Total daily dose ~ 58 units ASSESSMENT: * 63yo diabetic female with subadequate control per recent A1c of 8.1% on 03/01/19. Goal A1c likely closer to 7-8%. Could improve A1c with more consistent CHO coverage/bolus insulin * Pt with significant, sustained, hyperglycemia secondary to RTC high dose steroids with Solumedrol 40mg IV BID * Typically patients require ~0.4units/kg (~ 40 units for patient) additional insulin (on top of baseline needs) for high dose steroids. * Will continue outpatient regimen of Lantus SQ BID for easy transition back to outpatient. * Will increase dosing of BID Lantus and add aggressive CF/CR to equal ~ 40 additional units split 50%:50% basal/prandial * Estimated total daily dose ~ 100 units/day while on steroids. * Will decrease steroids with each step down in steroid dosing to prevent hypoglycemia PLAN FOR INPATIENT GLYCEMIC CONTROL: * Basal insulin * Lantus 25-35 units SQ BID based on degree of hyperglycemia * Bolus insulin * NovoLog per scale ACHS or Q6hrs while NPO * Goal Range: Low 110 mg/dL - High 140 mg/dL * Correction Factor: 15 mg/dL/unit * Nutritional / Prandial insulin per carb ratio of 1 unit per 5 grams CHO consumed PLAN FOR DISCHARGE: * Recommend working with patient to improve compliance with bolus insulin to improve A1c.
--- NOTE | 2019-03-02 09:57 | XRay Report ---
XR chest 2V routine CLINICAL HISTORY: LLL atelectasis COMPARISON STUDY: Chest CT February 04, 2019. Chest radiograph March 01, 2019. FINDINGS: Left subclavian pacer/AICD is in place. There is no pneumothorax. Cardiomegaly is unchanged and there is no evidence for pulmonary edema. Left lower lobe aeration has significantly improved si nce exam of March 01, 2019. There is mild residual atelectasis. There is a possible trace left pleural e ffusion. IMPRESSION: 1. Significant interval improvement in left lower lobe aeration with mild residual atelectasis. 2. No pneumothorax. Possible trace left pleural effusion. Electronically signed by: Emile Oliver M.D. 03/02/2019 9:56 AM
[2019-03-02 11:53] LABS: HSV Type 1 DNA Not Detected (Not Detected); HSV Type 2 DNA Not Detected (Not Detected)
--- NOTE | 2019-03-02 12:25 | Pulmonology Progress Note ---
Date of Service March 02, 2019 Assessment & Plan (1) Acute and chronic respiratory failure: acute hypoxic respiratory failure due to COPD exacerbation and atelectasis due to mucus plugging s/p bronchoscopy which is growing moraxella on ceftriaxone and doxycycline continues to have significant wheezing and continues to require higher than baseline o2 continue albuterol, ipratropium, formoterol, roflumilast continue steroids continue flutter valve, OOB as much as possible. acetylcysteine)may need to stop if wheezing not improving) pt saying she feels better and wants to go home Subjective says her breathing has improved Physical Exam Physical Exam: Constitutional: Comfortable NAD sitting on side of bed on NC 4 L HEENT: normocephalic atraumatic. CV: RRR nl s1,s2 no murmurs rubs or gallops Lungs: wheezing bilaterally. no accessory muscle use Abd: soft nontender nondistended. normal bowel sounds Ext: no edema. no cyanosis, no clubbing Skin: warm dry Neuro: alert. moving all extremities Psych: normal mood and affect Results & Data Vital Signs (Past 12 Hours) Vital Signs Temp Pulse Resp BP Pulse Ox 03/02/19 11:05 36.9 C 65 20 119/73 96 03/02/19 08:52 68 18 96 03/02/19 07:19 36.6 C 67 20 147/69 H 97 03/02/19 06:59 75 18 94 03/02/19 03:10 36.8 C 71 17 119/72 94 Laboratory Results Laboratory Results - last 24 hr 02/28/19 03/01/19 03/01/19 11:30 12:27 12:27 WBC 14.45 H RBC 4.57 Hgb 12.8 Hct 40.3 MCV 88.2 MCH 28.0 MCHC 31.8 L RDW Std Deviation 49.2 H RDW Coeff of Jerry 15.5 H Plt Count 213 MPV 9.7 Sodium Potassium Chloride Carbon Dioxide Anion Gap BUN Creatinine Est Cr Clr Drug Dosing Est GFR ( Amer) Est GFR (Non-Af Amer) BUN/Creatinine Ratio Glucose POC Glucose Calcium Total Bilirubin 0.3 Direct Bilirubin 0.1 AST 10 L ALT 16 Alkaline Phosphatase 30 L Total Protein 7.7 Albumin 2.8 L Herpes Virus Source Bronchial Wash HSV I DNA PCR Not Detected HSV II DNA PCR Not Detected 0503/01/19 03/01/19 16:21 20:11 23:56 WBC RBC Hgb Hct MCV MCH MCHC RDW Std Deviation RDW Coeff of Jerry Plt Count MPV Sodium Potassium Chloride Carbon Dioxide Anion Gap BUN Creatinine Est Cr Clr Drug Dosing Est GFR ( Amer) Est GFR (Non-Af Amer) BUN/Creatinine Ratio Glucose POC Glucose 308 H* 224 H 195 H Calcium Total Bilirubin Direct Bilirubin AST ALT Alkaline Phosphatase Total Protein Albumin Herpes Virus Source HSV I DNA PCR HSV II DNA PCR 03/02/19 03/02/19 03/02/19 04:18 06:58 07:27 WBC 14.20 H RBC 4.67 Hgb 13.1 Hct 41.2 MCV 88.2 MCH 28.1 MCHC 31.8 L RDW Std Deviation 50.3 H RDW Coeff of Jerry 15.7 H Plt Count 248 MPV 9.7 Sodium Potassium Chloride Carbon Dioxide Anion Gap BUN Creatinine Est Cr Clr Drug Dosing Est GFR ( Amer) Est GFR (Non-Af Amer) BUN/Creatinine Ratio Glucose POC Glucose 230 H 186 H Calcium Total Bilirubin Direct Bilirubin AST ALT Alkaline Phosphatase Total Protein Albumin Herpes Virus Source HSV I DNA PCR HSV II DNA PCR 03/02/19 03/02/19 07:27 11:04 WBC RBC Hgb Hct MCV MCH MCHC RDW Std Deviation RDW Coeff of Jerry Plt Count MPV Sodium 138 Potassium 4.4 Chloride 99 Carbon Dioxide 35 H Anion Gap 4.0 BUN 27 H D Creatinine 1.05 Est Cr Clr Drug Dosing 63.0 Est GFR ( Amer) 65.5 Est GFR (Non-Af Amer) 56.5 BUN/Creatinine Ratio 25.7 H Glucose 185 H POC Glucose 219 H Calcium 9.9 Total Bilirubin Direct Bilirubin AST ALT Alkaline Phosphatase Total Protein Albumin Herpes Virus Source HSV I DNA PCR HSV II DNA PCR
--- NOTE | 2019-03-02 15:54 | Hospitalist Progress Note ---
Date of Service March 02, 2019 Assessment & Plan (1) Acute and chronic respiratory failure: Brought in for a elective bronchoscopy on 02/28 and was found to have LLL collapse with mucoid impaction. Mucus removed, but developed acute respiratory failure from COPD exacerbation post-procedure. Underwent a second bronchoscopy on 03/01 with further clearing of her RML, RLL, and LLL. - Continue Brovana standing nebs, Mucomyst daily, roflumilast, and DuoNebs per pulmonology - Bronch culture from 02/28 grew Moraxella - Stopped doxycycline on 03/02 (2) Diabetes 1.5, managed as type 2: A1c of 8.1% on 03/01/2019. - Continue Lantus with sliding scale insulin - Diabetic diet (3) Hypertension: BP 140/75 to 180/80 in the last 24 hours. - Continued carvedilol and Lasix (4) Hypothyroidism: TSH is unknown. No signs/symptoms of hypo-/hyperthyroidism. - Continue home Synthroid 50 mcg (5) CHF (congestive heart failure): Unknown heart issues. - Continue home meds given short duration of stay (6) DVT prophylaxis: Xarelto Subjective Breathing better. Still some cough. Review of Systems Review of Systems: All systems reviewed & are unremarkable except as noted in HPI & below Physical Exam Constitutional: well nourished and + acute distress Respiratory: normal respiratory effort, lungs clear to auscultation + audible wheezes Cardiovascular: RRR, no murmur, no edema Vessels: normal peripheral pulses Gastrointestinal (Abdomen): Inspection/Auscultation: abdomen normal to inspection Percussion/Palpation: abdomen soft; abdomen nontender Musculoskeletal: no cyanosis or clubbing, extremities motor strength 5/5 Results & Data Vital Signs (Past 12 Hours) Vital Signs Temp Pulse Resp BP Pulse Ox 03/02/19 15:05 36.7 C 63 20 126/79 95 03/02/19 11:05 36.9 C 65 20 119/73 96 03/02/19 08:52 68 18 96 03/02/19 07:19 36.6 C 67 20 147/69 H 97 03/02/19 06:59 75 18 94
[2019-03-02] MEDS: SODIUM CHLOR 7% 4 ML NEB INH SCH (20:08)
[2019-03-03] MEDS: LEVOTHYROXINE SODIUM 125 MCG TABLET PO SCH (05:24)
[2019-03-03] MEDS: ACETYLCYSTEINE 20% INHAL SOLN ***DISPENSED BY RESP. INH SCH (07:11)
[2019-03-03] MEDS: ALBUT/IPRATROP 3MG/0.5MG NEB 3 ML VIAL NEB PRN (07:11)
[2019-03-03] MEDS: ARFORMOTEROL TART 15MCG/2ML VIAL INH SCH (07:12)
[2019-03-03] MEDS: guaiFENesin 600 MG TABCR PO SCH (08:41)
[2019-03-03] MEDS: FUROSEMIDE 40 MG TAB PO SCH (08:42)
[2019-03-03] MEDS: GABAPENTIN 300 MG CAP PO SCH (08:42)
[2019-03-03] MEDS: BuPROPion SR 150 MG TABCR PO SCH (08:42)
[2019-03-03] MEDS: CLOPIDOGREL BISULFATE 75 MG TAB PO SCH (08:42)
[2019-03-03] MEDS: AMIODARONE 200 MG TAB PO SCH (08:42)
[2019-03-03] MEDS: POTASSIUM CHLORIDE 10 MEQ TABCR PO SCH (08:42)
[2019-03-03] MEDS: CARVEDILOL 12.5 MG TAB PO SCH (08:43)
[2019-03-03] MEDS: ROFLUMILAST 500 MCG TAB PO SCH (08:43)
[2019-03-03] MEDS: MAGNESIUM OXIDE 400 MG TAB PO SCH (08:43)
[2019-03-03] MEDS: INSULIN ASPART 100 UNITS/ML 3 ML PEN SC SCH ×2 (08:44→12:34)
[2019-03-03] MEDS: FLUTICASONE PROPIONATE NA SPR 16 GM BTL SCH (08:47)
[2019-03-03] MEDS: PANTOprazole 40 MG TAB PO SCH (08:48)
[2019-03-03] MEDS: RIVAROXABAN 20 MG TAB PO SCH (08:48)
[2019-03-03] MEDS ORDERED: INSULIN GLARGINE SOLOSTAR 100 UNITS/ML 3 ML PEN SQ SCH (09:00)
[2019-03-03] MEDS: cefTRIAXone SODIUM 2,000 MG in DEXTROSE 5% 50 ML IV SCH (09:00)
[2019-03-03] MEDS ORDERED: predniSONE 20 MG TAB PO SCH (09:00)
--- NOTE | 2019-03-03 09:02 | Pharmacy Report ---
Pharmacy Glycemic Short Note 2 - Date of Service March 03, 2019 - Glycemic Short BSG Results (Last 24 hours): 03/02/19 03/02/19 03/02/19 11:04 16:07 20:05 POC Glucose 219 H 169 H 210 H 03/03/19 03/03/19 03/03/19 07:09 07:10 07:32 POC Glucose 63 L* 73 97 OUTPATIENT ANTIDIABETIC REGIMEN: * Lantus 20 units SQ BID * NovoLog 6 units SQ TIDM {doesnt really bolus consistently} * Total daily dose ~ 58 units ASSESSMENT: * 63yo diabetic female with subadequate control per recent A1c of 8.1% on 03/01/19. Goal A1c likely closer to 7-8%. Could improve A1c with more consistent CHO coverage/bolus insulin as already Rx * Pt with significant, sustained, hyperglycemia secondary to RTC high dose steroids with Solumedrol 40mg IV BID. SQ basal bolus insulin regimen increased accordingly * Typically patients require ~0.4units/kg (~ 40 units for patient) additional insulin (on top of baseline needs) for high dose steroids. * Will continue outpatient regimen of Lantus SQ BID for easy transition back to outpatient. * Will increase dosing of BID Lantus and add aggressive CF/CR to equal ~ 40 additional units split 50%:50% basal/prandial * Estimated total daily dose ~ 100 units/day while on steroids. Pt received 116 units of insulin yesterday. * Pt with LOW BSG this AM d/t insulin dosing increased yesterday but then steroids decreased in the evening. Will decrease SQ basal bolus insulin regimen accordingly. * Will decrease continue to decrease insulin with each step down in steroid dosing to prevent hypoglycemia PLAN FOR INPATIENT GLYCEMIC CONTROL: Decrease regimen to ~80-90 units of insulin per day. * Basal insulin * Lantus 20 units SQ BID * Bolus insulin * NovoLog per scale ACHS or Q6hrs while NPO * Goal Range: Low 110 mg/dL - High 140 mg/dL * Correction Factor: 15 mg/dL/unit * Nutritional / Prandial insulin per carb ratio of 1 unit per 5 grams CHO consumed PLAN FOR DISCHARGE: * Recommend working with patient to improve compliance with bolus insulin to improve A1c.
[2019-03-03 09:05] LABS: BUN Creatinine Ratio 28.4 (10-20); Calcium 9.6 mg/dl (8.5-10.1); Creatinine Clr Calc Pharmacy 57.7 ml/min; Est GFR (African American) 59.3; Est GFR (Non-African American) 51.1; Potassium 3.5 mmol/L (3.5-5.1)
--- NOTE | 2019-03-03 18:17 | Discharge Summary ---
Date of Service March 03, 2019 Admission HPI Per Admitting Provider 63-year-old female brought for an elective bronchoscopy with Dr. Link for abnormal chest x-ray and increased shortness of breath. Reportedly she has fairly significant lung disease with an FEV1 of 700. He did find her to have left lower lobe collapse with mucoid impaction which was removed but subsequent to the procedure she developed a acceleration of her shortness of breath and having acute on chronic respiratory failure from COPD. The patient has chronic tobacco use as her history as well as some cardiovascular problems taking amiodarone and Xarelto although she does not recite to me that she is a history of atrial fibrillation when I asked with her and her daughter. In the ambulatory surgical unit she is laying on her right side she was talking in short sentences she has some pursed lip breathing he is on supplemental oxygen upon exam was abnormal she is agreeable to present to the hospital for further care by Dr. Link we did confirm she is a CPR code only in front of her daughter. She will be brought in for intravenous steroids inhaled bronchodilators give a short trial of Pulmozyme to see if I can move any of her mucus secretions as well as some Mucinex Principal Diagnosis Mucus plug and COPD flare Discharge Exam Constitutional well nourished and + acute distress ENMT Mallampati Class: III Respiratory normal respiratory effort, lungs clear to auscultation + audible wheezes Cardiovascular RRR, no murmur, no edema Vessels: normal peripheral pulses Gastrointestinal (Abdomen) Inspection/Auscultation: abdomen normal to inspection Percussion/Palpation: abdomen soft; abdomen nontender Musculoskeletal no cyanosis or clubbing, extremities motor strength 5/5 Discharge Data Allergies Allergy/AdvReac Type Severity Reaction Status Date / Time varenicline [From Chantix] Allergy Rash Verified 02/28/19 09:50 Consultations 02/28/19 12:08 Consult Hospitalist Routine 02/28/19 12:51 Consult Pulmonology Routine 02/28/19 12:55 Consult Case Management - Discharge Planning Routine Procedures Performed Operation Date: 02/28/19 10:00 Actual Procedures p Bronchoscopy Radiology(Bilateral) - James Link MD Operation Date: 03/01/19 10:30 Actual Procedures p Bronchoscopy Radiology(Bilateral) - James Link MD Hospital Course (1) Acute and chronic respiratory failure: Brought in for a elective bronchoscopy on 02/28 and was found to have LLL collapse with mucoid impaction. Mucus removed, but developed acute respiratory failure from COPD exacerbation post-procedure. Underwent a second bronchoscopy on 03/01 with further clearing of her RML, RLL, and LLL. - Continue Brovana standing nebs, Mucomyst daily, roflumilast, and DuoNebs per pulmonology - Bronch culture from 02/28 grew Moraxella - Stopped doxycycline on 03/02 - Discharged on Augmentin for 2 more days and a steroid taper. (2) Diabetes 1.5, managed as type 2: A1c of 8.1% on 03/01/2019. - Continue Lantus with sliding scale insulin - Diabetic diet (3) Hypertension: BP 140/75 to 180/80 in the last 24 hours. - Continued carvedilol and Lasix (4) Hypothyroidism: TSH is unknown. No signs/symptoms of hypo-/hyperthyroidism. - Continue home Synthroid 50 mcg (5) CHF (congestive heart failure): Unknown heart issues. - Continue home meds given short duration of stay (6) DVT prophylaxis: Xarelto Total Time Total Time Spent Total Time Spent (In Minutes): 35 Total Time Includes: Examination of the Patient Discharge Plan Discharge Items Patient Disposition: Home - Self-Care Reason For Visit: COPD, ABNORMAL LUNG CT, SOB *DR LINK TO PERFORM Discharge Diagnosis: COPD exacerbation from bacteria and from mucus impaction in lungs Discharge Goals: Decrease discomfort, Diagnostic testing and Therapeutic intervention Activity: Resume your previous activity Non-emergency contact: Primary Care Provider and Air Bag Builder Call non-emergency contact if: your symptoms worsen and your temperature is above 100.5 Follow-up/Referrals: James Link MD [Physician] - 03/11/19 11:30 am (follow up appointment with the lung doctor at the [facility] office ) Dima Quinn DO [Primary Care Provider] - 03/05/19 3:00 pm (follow up with your primary care physician) Diet: Low Sodium (2gm) Addtl Provider Instructions: Ms. Longoria, You were admitted to the hospital for a COPD exacerbation. Dr. Link performed 2 bronchoscopies on you and also found a lot of thick mucus clogging your left lung and your right lower lung. He washed this out during the bronchoscopies. By discharge, you were breathing much better. A mucus (sputum) sample from the bronchoscopy grew a bacteria called Moraxella. We are giving you 2 more days of antibiotics for this since you've already been on the right antibiotic for 3 days here in the hospital. We are also giving you a steroid taper which will last about 1 week. Take 40 mg (4 tablets) x 2 days, then 30 mg x 2 days, then 20 mg x 2 days, then 10 mg x 2 days. Please follow up with your PCP and Dr. Link to be sure your breathing is continuing to improve. Please return to the hospital with any shortness of breath that is concerning for you. Prescriptions: New amoxicillin-pot clavulanate [Augmentin] 875-125 mg tablet 1 tab PO Q12H Qty: 4 RF: 0 prednisone 10 mg tablet 40 mg PO DAILY Qty: 20 RF: 0 Continued Daliresp tablet 500 mcg PO DAILY RF: 0 pantoprazole tablet 40 mg PO DAILY RF: 0 Vancocin capsule 250 mg PO DAILY RF: 0 Xarelto tablet 20 mg PO DAILY RF: 0 clobetasol cream 1 applic topical DAILY RF: 0 potassium chloride tablet 10 meq PO DAILY RF: 0 simvastatin tablet 20 mg PO DAILY RF: 0 triamcinolone acetonide cream 1 applic topical DAILY PRN (Reason: Dry Skin) RF: 0 ipratropium-albuterol 0.5 mg-3 mg(2.5 mg base)/3 mL Solution For Nebulization 3 ml INHALATION Q6 PRN (Reason: COUGH, WHEEZING) RF: 0 albuterol sulfate [ProAir HFA] 90 mcg/actuation Hfa Aerosol Inhaler 1 puff INHALATION Q4 PRN (Reason: Wheezing) RF: 0 Trelegy Ellipta 100-62.5-25 mcg Blister With Device 1 inh INHALATION DAILY RF: 0 hydrocortisone [Anusol-HC] 2.5 % Cream With Perineal Applicator 1 applic ND BID PRN (Reason: NEEDED) RF: 0 Calcium 500 + D 1 tab PO DAILY RF: 0 amiodarone 200 MG 200 mg PO DAILY RF: 0 carvedilol 12.5 MG 1 tab PO DAILY RF: 0 Spiriva with HandiHaler inhaler 18 mcg inhalation DAILY RF: 0 Wellbutrin SR tablet 150 mg PO BID RF: 0 clopidogrel 75 mg Tablet 75 mg PO DAILY RF: 0 diclofenac sodium 25 mg Tablet,Delayed Release (Dr/Ec) 1 tab PO DAILY RF: 0 Tylenol Extra Strength 500 MG 2 tab PO Q4 PRN (Reason: Pain) RF: 0 magnesium 250 mg Tablet 250 mg PO DAILY RF: 0 furosemide [Lasix] 40 mg Tablet 40 mg PO DAILY RF: 0 Lantus U-100 Insulin 100 unit/mL Solution 20 unit SUBCUT BID RF: 0 levothyroxine 125 mcg Tablet 1 tab PO DAILY RF: 0 gabapentin 300 mg Capsule 1 cap PO TID RF: 0 multivitamin Tablet 1 tab PO DAILY RF: 0 Novolog Flexpen U-100 Insulin 100 unit/mL (3 mL) Insulin Pen 15 unit SUBCUT DAILY RF: 0 guaifenesin [Mucinex] 600 mg Tablet Extended Release 12hr 180 mg PO DAILY RF: 0 fluticasone propionate [Flonase Allergy Relief] 50 mcg/actuation [place],Suspension 1 spray INTRANASAL DAILY RF: 0 Stand-Alone Forms: [facility] Discharge Orders: Discharge Order (Routine); Ordered 03/03/19 Ordered By: Jorje Min Admission Data Admit Date/Time: 02/28/19 12:51 Attending Provider: Jorje Min Admit Provider: Jorje Peterson Primary Care Provider: Dima Quinn Other Providers: Balwinder Wallace ; Shelia Brown ; Lewis Herrera Robert R. ; Tammy Velazquez ; Jorje Peterson ; Fly Serrano ; Morris Recinos ; Aakash Hernandez ; Ambika Murrieta ; Tri Townsend ; Sonia Alfaro ; Yehuda Lira ; Richa Zhang ; Jorje Min ; Francisco Alexis ; Troy Perez ; Radha Soto Sarah Ann ; Tez Anderson ; Freeman Madison ; Blas Montoya ; Uzma Miller ; Femi Ayala ; James Link Service: Telemetry Other Interventions: Discharge Summary Assessment (RN) Last Done: 03/03/19 12:43 DC Date/Time DO NOT enter until pt leaves facility: 03/03/19 14:09
== END 2019-03-03 14:09 | disposition home or self-care (01) | DRG 189 ==
LOC: ASU 09:18 → 2S 12:51 → SUATTDRO 12:51